=== PATIENT | female | born 1990 | race Caucasian/White ===

== ENCOUNTER 2021-02-13 12:54 | Emergency (ER) | payer OTHER ==
[~2021-02-13] VITALS: Ht 162.6 cm; Wt 59.0 kg
[~2021-02-13 12:54] MED LIST: IRON325; PRENATAL + DHA1 EAC1; VENTOLIN HFA INH8 GM PO
[2021-02-13] MEDS ORDERED: AMOXICILLIN500 M1 PO (14:34)
[2021-02-13] MEDS ORDERED: ULTRAM 50MG TAB50 MG PO (14:34)
[2021-02-13 16:00] VITALS: BP 137/86
== END 2021-02-13 16:24 | disposition home or self-care (01) ==
LOC: ER 12:54
DX: S00.83XA Contusion of other part of head, initial encounter (principal); Z90.710 Acquired absence of both cervix and uterus; Z98.51 Tubal ligation status; Z79.899 Other long term (current) drug therapy; Y08.89XA Assault by other specified means, initial encounter; Y93.89 Activity, other specified; Y92.89 Other specified places as the place of occurrence of the external cause; Y99.8 Other external cause status